=== PATIENT | male | born 1985 | race Caucasian/White ===

== ENCOUNTER 2025-07-11 14:46 | Outpatient (AMB) | payer OTHER, SELFPAY ==
[2025-07-11 14:48] VITALS: BP 134/82; PULSE 86; RESP 18; TEMP 36.4; O2SAT 97; BMI 23.1
--- NOTE | 2025-07-11 14:48 | A.OFFPC_ITS ---
Vital Signs 07/11/25 14:48 Height 6 ft 3 in Weight 184 lb 8 oz BMI 23.1 BP 134/82 Blood Pressure Location Lt brachial Position Sitting Respiration 18 Pulse 86 Pulse Source Pulse Oximeter Temp 97.5 F Temp Source Temporal Artery Scan Pulse Oximetry (%) 97 Oxygen Delivery Method Room Air Intake Visit Reasons: [facility] Explosion Welder Required: No Accompanied by: Self / Same As Patient Allergies melons Allergy (Mild, Uncoded 07/11/25 15:01) Itchy Eyes fresh grass Adverse Reaction (Mild, Uncoded 07/11/25 15:01) itching Medication List - Last Reconciled 07/11/25 by KELLE Purcell No Known Home Meds Tobacco use date assessed: 07/11/25 Dental Screening Dental Screen Date: 07/11/25 Did you have a dental visit in the last 12 months?: No Did you have a dental problem in the last 6 months where you did not have access to dental care?: No Was dental information given to patient?: No HPI [facility] HPI Details The patient is a 39-year-old male presenting to [facility] Previous PCP: Will [facility], During [facility], he has never been physically seen by the provider. The patient does not remember for name of the facility nor the doctor's name. Last PE: Specialist: neuro spine [facility]-Dr. Lucina FONTANEZ:n/a Past medical history: Reports kidney stone a year ago s/p lithotripsy Medications: Family HX: Problem: The patient is a 39-year-old male presenting with lumbar disc herniation. The condition started after an incident with a jackhammer, causing severe back pain and subsequent imaging showed disc herniation with spinal cord compression. Symptoms include leg pain and numbness, exacerbated by certain positions. The patient has a past history of asthma induced by physical exertion, previously managed with medications during high school sports. Currently, the asthma is not active due to decreased physical activity. A history of kidney stones was noted, which required lithotripsy procedure due to obstruction and infection risk. Dietary modifications have been made to reduce sugar intake and prevent recurrence. Patient reports that he was seen by Dr. Verdugo at [facility] and referred to be seen by [facility] for gel injections. However, during the process he lost his primary care and had some issues with his insurance. The patient reports that he was evaluated via x-ray and MRI that showed that he had for disc pinching his nerves. [facility] Medical History (Updated 07/11/25 @ 17:13 by KELLE Purcell) Kidney stone Surgical screw in right hand Back problem Asthma Social History Household Members: Spouse and Children Housing: Apartment Alcohol intake: current Patient Tobacco Use Status: Never used Tobacco e-Cigarette/Vaping Use: Never Used Current occupational status: employed Current occupation: Farm Equipment Service Technician Cognitive needs: No Hearing needs: No Vision needs: No Questionnaire PHQ-9 Over the last 2 weeks, how often have you been bothered by any of the following problems? 1. Little interest or pleasure in doing things: not at all 2. Feeling down, depressed, or hopeless: not at all 3. Trouble falling or staying asleep, or sleeping too much: several days 4. Feeling tired or having little energy: not at all 5. Poor appetite or overeating: not at all 6. Feeling bad about yourself - or that you are a failure or have let yourself or your family down: not at all 7. Trouble concentrating on things, such as reading the newspaper or watching television: not at all 8. Moving or speaking so slowly that other people could have noticed. Or the opposite - being so fidgety or restless that you have been moving around a lot more than usual: not at all 9. Thoughts that you would be better off or of hurting yourself in some wa y: not at all Total score: 1 58907 - PHQ-9 Billing: Yes Source: Developed by Drs. Bhupendra Sanders, Tierra Barroso, Con Gardner and colleagues, with an educational margie from [employer]. Thrive Questionnaire Date Thrive assessed: 07/11/25 I am a: Patient What is your living situation today?: I have a steady place to live Within the past 12 months, did the food you bought not last and you didn't have the money to get more?: Never true Within the past 12 months, did you worry whether your food would run out before you got money to buy more?: Never true Do you have trouble paying for medicines?: No Do you have trouble getting transportation to medical appointments?: No Do you have trouble paying your heating and electricity bill?: No Do you have trouble taking care of your child, family member or friend?: No Do you have trouble with day-to-day activities such as bathing, preparing meals, shopping, managing finances, etc.?: No Are you currently unemployed and looking for a job?: No Are you interested in more education?: No Please select the resources that you would like help with: None Currently or been in a relationship where the following occur: No concerns reported THRIVE Score: 0 AUDIT C Alcohol Use Questionnaire (AUDIT-C) 1. How often do you have a drink containing alcohol?: 2-3 times a week 2. How many drinks containing alcohol do you have on a typical day when you are drinking?: 1 or 2 3. How often do you have six or more drinks on one occasion?: Less than monthly Total Score: 4 DARIAN-7 AMB Questionnaire DARIAN-7 Feeling nervous, anxious, or on edge: 0 = Not at all Not being able to stop or control worryin = Not at all Worrying too much about different things: 0 = Not at all Trouble relaxin = Not at all Being so restless that it is hard to sit still: 0 = Not at all Becoming easily annoyed or irritable: 0 = Not at all Feeling afraid as if something awful might happen: 0 = Not at all Total DARIAN-7 score (0-4 normal; 5-9 mild; 10-14 moderate; 15-21 severe): 0 Source: Developed by Drs. Bhupendra Sanders, Tierra Barroso, Con Gardner and colleagues, with an educational margie from [employer]. DARIAN-7 Assessment Billing DARIAN-7 Assessment Tool: DARIAN-7 Assessment 49787 Review of Systems Const Denies headache(s) Eyes Denies loss of vision ENT Denies vertigo, Denies dizziness, Denies headache(s) and Denies sore throat Card Denies chest pain, Denies leg edema and Denies lightheadedness Resp Denies cough, Denies hemoptysis and Denies wheezing GI Denies abdominal pain, Denies melena, Denies constipation, Denies diarrhea and Denies vomiting Denies dysuria, Denies urinary frequency and Denies urinary urgency Musc Reports back pain, Denies arthralgias, Denies joint swelling, Denies numbness, Reports radiating pain into limb (Intermittently) and Denies tingling Neuro Denies Abnormal speech present, Denies behavioral changes, Denies vertigo, Denies dizziness, Denies headache(s), Denies loss of vision, Denies memory loss, Denies numbness and Denies tingling Psych Denies anxiety, Denies behavioral changes, Denies depression, Denies memory loss and Denies panic attacks Coy/Lymph Denies easy bleeding and Denies easy bruising Aller/Immun Denies wheezing Physical exam (Primary Care) Vital Signs: Last Vital Signs Temp 97.5 F 07/11/25 14:48 Pulse 86 07/11/25 14:48 Resp 18 07/11/25 14:48 BP 134/82 07/11/25 14:48 Pulse Ox 97 07/11/25 14:48 Oxygen Delivery Method Room Air 07/11/25 14:48 BMI result Body Mass Index 23.1 Tobacco/Smoking Status: Tobacco use Status Tobacco use date assessed 07/11/25 07/11/25 14:58 Patient Tobacco Use Status Never used Tobacco 07/11/25 14:58 e-Cigarette/Vaping Use Never Used 07/11/25 14:58 PHQ-9: PHQ-9 Score PHQ-9: Total score 1 07/11/25 14:58 Thrive Assessment: Date of Thrive Assessment Date Thrive assessed 07/11/25 07/11/25 14:58 Currently or been in a relationship where the following occur: No concerns reported Const General: healthy appearing, no acute distress, alert and awake Nutritional Appearance: well nourished Orientation/consciousness: oriented to person, oriented to place and oriented to time [facility] Ears: TM's normal bilaterally General nose exam: Normal nasal mucous membranes and turbinates present Eyes Conjunctivae: conjunctivae normal Sclerae: sclerae normal Pupils: Equal, round and reactive pupils present Neck Neck: Yes no lymphadenopathy and Yes no JVD Thyroid: Thyroid normal Carotids: no bruits Resp Effort & Inspection: normal respiratory effort and not tachypneic Auscultation: no crackles, no rales, no rhonchi and no wheezes Cardio Rate: regular rate Rhythm: regular rhythm Heart sounds: no murmurs and normal S1 and S2 GI Palpation (GI): Soft to palpation, nontender, no hepatomegaly and no splenomegaly Auscultation: normal bowel sounds General: Yes no CVA tenderness Back/Spine/Pelvis Back: no CVA tenderness Thoracic/Lumbar Spine: straight leg raise negative bilaterally and lumbar spinal tenderness Skin General skin exam: no rashes or lesions noted and dry skin Neuro General: oriented to person, oriented to place and oriented to time Cranial nerves: Yes Equal, round and reactive pupils present Speech: No Abnormal speech present Gait exam (Neuro): Normal gait present Motor exam (neuro): no tremor noted Extrem Right upper extremity: full ROM Left upper extremity: full ROM Right lower extremity: full ROM; no edema Left lower extremity: full ROM; no edema Psych Mental Status: mental status grossly normal Speech and movement: Normal speech and movement present Affect: normal affect Attitude: cooperative Thought process: Normal thought process present Coding Level of Care Code New Pt Level 3 (65266) Diagnoses Chronic right-sided low back pain with right-sided sciatica M54.41; G89.29 Chronicity: chronic Back pain laterality: right Sciatica presence: with sciatica Sciatica laterality: sciatica of right side Kidney stone N20.0 Additional Codes DARIAN-7 Assessment Billing - DARIAN-7 Assessment Tool: DARIAN-7 Assessment 34089 ([id number]) PHQ-9 - 01864 - PHQ-9 Billing: Yes ([id number]) Time Spent (min) 34 Assessment & Plan Assessment & Plan (1) Low back pain: Code(s): M54.50 - Low back pain, unspecified Category: Medical Qualifiers: Chronicity: chronic Back pain laterality: right Sciatica presence: with sciatica Sciatica laterality: sciatica of right side Qualified Code(s): M54.41 - Lumbago with sciatica, right side; G89.29 - Other chronic pain Plan: The patient will be referred to [facility] for potential injections to alleviate symptoms associated with lumbar disc herniation. A follow-up appointment is planned in eight weeks to evaluate treatment efficacy and perform a comprehensive physical examination. (2) Kidney stone: Code(s): N20.0 - Calculus of kidney Category: Medical Plan: Dietary changes to reduce sugar intake are recommended to prevent kidney stone recurrence. Kidney function tests will be included in the follow-up visit to monitor for any issues. Orders: Orders TSH reflex Free T4 Today Z00.00 - Encounter for general adult medical examination without abnormal findings UA CC w/rflx Micro + Cult Today Z00.00 - Encounter for general adult medical examination without abnormal findings Vitamin D 25-OH Total Today Z00.00 - Encounter for general adult medical examination without abnormal findings Complete Blood Count Auto Diff Today Z00.00 - Encounter for general adult medical examination without abnormal findings Comprehensive [place]. Panel Fast Today Z00.00 - Encounter for general adult medical examination without abnormal findings Lipid Panel Today Z00.00 - Encounter for general adult medical examination without abnormal findings Referrals Pain Management Referral M54.50 - Low back pain, unspecified
--- OUTSIDE RECORDS SUMMARY | 2025-07-11 17:56 | XMS_ITS | Clinical Summary ---
Author Organization [employer] Address [address] [place] [address] Care Team Providers Care Product Safety Consultant Name Role Phone Unavailable Primary Care Provider Unavailabl e Social History Tobacco Use Types Packs/Day Years Used Date Smoking Tobacco: Never Assessed Sex and Gender Information Value Date Recorded Sex Assigned at Not on file Legal Sex Male 12:29 PM EDT Gender Identity Not on file Sexual Orientation Not on file Plan of Treatment Health Maintenance Due Date Last Done Comments Depression Screening 1985 HIV Screening 1985 Lipid Panel 1985 SDOH Screening 1985 Disability Screening 1985 Alcohol/Substance Use Screening 1997 Tobacco Screening 1997 Family Planning (PISQ) 2000 HPV Vaccines (1 - Male 3-dos e series) 2000 Hepatitis C Screening 2003 DTaP/Tdap/Td Vaccines (1 - Tdap) 2004 Hepatitis B Vaccines (1 of 3 - 19+ 3-dose series) 2004 COVID-19 Vaccine (1 - 2023-2 5 season) 2025 Influenza Vaccine (#1) 2025 Zoster Vaccines (1 of 2) 2035 RSV Patients and Pa tients Aged 60 years or older (1 - 1-dose 75+ series) 2060 HIB Vaccines Aged Out No longer eligi ble based on patient's age to complete this topic Hepatitis A Vaccines Aged Out No long er eligible based on patient's age to complete this topic IPV Vaccines Aged Out No longer eligi ble based on patient's age to complete this topic Meningococcal B Vaccine Aged Out No l onger eligible based on patient's age to complete this topic Meningococcal Vaccine Aged Out No onesimo lien eligible based on patient's age to complete this topic Pneumococcal Vaccine: Pediat rics (0 to 5 Years) and At-Risk Patients (6 to 49) Years Aged Out No longer eligible b ased on patient's age to complete this topic RSV under 20 months Aged Out No longe r eligible based on patient's age to complete this topic Rotavirus Vaccines Aged Out No longer eligible based on patient's age to complete this topic
== END 2025-07-11 15:21 | disposition home or self-care (01) ==
LOC: HO.HMCH 14:47
DX: M54.41 Lumbago with sciatica, right side (principal); G89.29 Other chronic pain; N20.0 Calculus of kidney

== ENCOUNTER → 2025-07-11 14:46 | Outpatient (BNVA) | payer OTHER, SELFPAY | DX: M54.41 Lumbago with sciatica, right side (principal); J45.909 Unspecified asthma, uncomplicated; G89.29 Other chronic pain; Z87.442 Personal history of urinary calculi | CPT/HCPCS: 96127; 99202 ==